=== PATIENT | female | born 1990 | race Caucasian/White ===

== ENCOUNTER 2022-10-08 20:23 | Inpatient (IN) ==
[2022-10-08] MEDS ORDERED: miSOPROStoL 200 MCG TABLET RECTAL PRN (20:38)
[2022-10-08] MEDS ORDERED: DINOPROSTONE 10 MG VAG.INSERT VAG ONE (20:38)
[2022-10-08] MEDS ORDERED: METHYLERGONOVINE 0.2 MG/1 ML AMP IM PRN (20:38)
[2022-10-08] MEDS ORDERED: OXYTOCIN/LR 20 UNIT/1,000 ML BAG IV ONE (20:38)
[2022-10-08] MEDS ORDERED: ONDANSETRON 4 MG/2 ML VIAL IV PRN (20:38)
[2022-10-08] MEDS ORDERED: TRANEXAMIC ACID 1,000 MG in SODIUM CHLORIDE 0.9% 100 ML IV PRN (20:38)
[2022-10-08] MEDS ORDERED: CARBOPROST TROMETHAMINE 250 MCG/ML AMP IM PRN (20:38)
[2022-10-08 21:17] LABS: Bacteria,Urine Occasional /HPF (Few); RBC,Urine <1 /HPF (0-4); Squamous Epithelial Cell,Urine Occasional /HPF (0-10)
[2022-10-08 21:19] LABS: Bilirubin,Urine Negative (Negative); Blood, Urine Negative (Negative); Glucose,Urine (UA) Negative (Negative); Ketones,Urine Negative (Negative); Nitrite,Urine Negative (Negative); Protein,Urine Negative (Negative); Urine Appearance Clear (Clear); Urine Color Yellow (Yellow); Urine Specific Gravity < 1.005 (1.001-1.035); Urine Urobilinogen 0.2 eU/dL (<2.0)
[2022-10-08 21:29] LABS: Basophils % 0.3 % (0.0-0.8); Eosinophils # 0.1 10*3/uL (0.0-0.87); Eosinophils % 0.5 % (0.00-10.9); Hemoglobin 13.4 GM/DL (12.0-16.0); Immature Granulocytes % 0.4 %; Immature Granulocytes Absolute 0.04 #; Lymphocytes # 1.3 10*3/uL (1.4-4.0); Lymphocytes % 13.9 % (21.3-54.2); Mean Corpuscular HGB Conc 34.4 GM/DL (32-36); Mean Corpuscular Volume 94.2 FL (87-102); Monocytes # 0.7 10*3/uL (0.11-0.8); Monocytes % 7.8 % (1.7-12.7); Neutrophils % 77.1 % (38.7-73.9); Platelet Count 205 T/CUMM (130-400); Red Blood Count 4.14 MC/CUMM (3.8-5.5); Red Cell Distribution Width 12.6 % (9.3-17.3); White Blood Count 9.5 T/CUMM (4-12)
[2022-10-08 21:48] LABS: Alanine Aminotransferase 43 U/L (13-56); Albumin 2.8 G/DL (3.4-5.0); Alkaline Phosphatase 160 U/L (45-117); Aspartate Amino Transferase 26 U/L (0-37); Bilirubin,Total < 0.39 MG/DL (0.20-1.00); Blood Urea Nitrogen 8 MG/DL (7-18); Calcium 9.2 MG/DL (8.5-10.1); Carbon Dioxide 19 MMOL/L (21-32); Chloride 105 MMOL/L (98-107); Glucose 90 MG/DL (74-106); Osmolality,Calculated 265.2 MOS/KG (273-304); Potassium 3.3 MMOL/L (3.5-5.1); Sodium 134 MMOL/L (136-145); Total Protein 6.8 G/DL (6.4-8.2)
[2022-10-08] MEDS: LACTATED RINGERS 500 ML IV PRN ×2 (22:55→23:56)
[2022-10-08] MEDS: LACTATED RINGERS 1,000 ML IV SCH (23:51)
[2022-10-09] MEDS: LACTATED RINGERS 1,000 ML IV SCH ×2 (00:27→09:04)
[2022-10-09] MEDS ORDERED: DINOPROSTONE 10 MG VAG.INSERT VAG ONE (15:00)
[2022-10-09] MEDS ORDERED: ZALEPLON 5 MG CAPSULE PO PRN (21:00)
[2022-10-10] MEDS: LACTATED RINGERS 1,000 ML IV SCH ×3 (01:38→16:05)
[2022-10-10] MEDS ORDERED: FAMOTIDINE 20 MG/2 ML VIAL IV ONE (08:00)
[2022-10-10] MEDS ORDERED: ePHEDrine 50 MG/ML VIAL IV PRN (08:00)
[2022-10-10] MEDS ORDERED: PROMETHAZINE 25 MG/1 ML VIAL IM ONE (08:00)
[2022-10-10] MEDS ORDERED: CITRIC ACID/SODIUM CITRATE 30 ML UDCUP PO ONE (08:00)
[2022-10-10] MEDS ORDERED: LACTATED RINGERS 500 ML IV ONE (08:00)
[2022-10-10] MEDS ORDERED: hydrOXYzine HCL 25 MG/1 ML VIAL IM PRN (08:00)
[2022-10-10] MEDS ORDERED: LACTATED RINGERS 1,000 ML IV ONE (08:00)
[2022-10-10] MEDS ORDERED: NALOXONE 0.4 MG/ML VIAL IV PRN (08:00)
[2022-10-10] MEDS: fentaNYL 2 MCG/ROPIV 0.2% EPID 100 ML EPIDURAL SCH (10:32)
[2022-10-10] MEDS: OXYTOCIN/LR 20 UNIT/1,000 ML BAG IV SCH (11:32)
[2022-10-10 14:48] LABS: Glucose,Urine (UA) Negative (Negative); Ketones,Urine 80 mg/dL (Negative); Protein,Urine 30 mg/dL (Negative); Urine Appearance Clear (Clear); Urine Color Red (Yellow); Urine Specific Gravity 1.015 (1.001-1.035)
[2022-10-10 14:49] LABS: Bilirubin,Urine Negative (Negative); Blood, Urine Large mg/dL (Negative); Nitrite,Urine Negative (Negative); Urine Urobilinogen 0.2 eU/dL (<2.0)
[2022-10-10 14:53] LABS: Mucus,Urine Occasional /LPF (Occasional); RBC,Urine 825 /HPF (0-4); Squamous Epithelial Cell,Urine Occasional /HPF (0-10)
[2022-10-10] MEDS ORDERED: TRANEXAMIC ACID 1,000 MG/10 ML VIAL ONE (16:03)
[2022-10-10] MEDS ORDERED: SODIUM CHLORIDE 0.9% 0 ML IV ONE (16:03)
[2022-10-10] MEDS ORDERED: miSOPROStoL 200 MCG TABLET ONE (16:03)
[2022-10-10] MEDS ORDERED: ceFAZolin 2,000 MG/50 ML DUPLEX IV ONE (16:04)
[2022-10-10] MEDS ORDERED: METHYLERGONOVINE 0.2 MG/1 ML AMP ONE (16:04)
[2022-10-10] MEDS ORDERED: CARBOPROST TROMETHAMINE 250 MCG/ML AMP IM ONE (16:04)
[2022-10-10] MEDS ORDERED: LIDOCAINE 2% 5 ML VIAL ONE ×2 (16:07→17:17)
[2022-10-10] MEDS ORDERED: EPINEPHrine 1 MG/ML VIAL ONE (16:07)
[2022-10-10] MEDS ORDERED: SODIUM BICARBONATE 10 MEQ/10 ML SYRINGE IV ONE (16:07)
[2022-10-10] MEDS ORDERED: ONDANSETRON 4 MG/2 ML VIAL ONE (16:15)
[2022-10-10] MEDS ORDERED: ACETAMINOPHEN INJ 1,000 MG/100 ML VIAL IV ONE (16:15)
[2022-10-10] MEDS ORDERED: KETOROLAC 30 MG/1 ML VIAL ONE (16:15)
[2022-10-10] MEDS ORDERED: DEXAMETHASONE 4 MG/1 ML VIAL ONE ×2 (16:15→16:16)
[2022-10-10] MEDS ORDERED: buprenorphine HCL 0.3 MG/ML VIAL ONE (16:16)
[2022-10-10 17:19] LABS: Cord Venous Blood HCO3 22.1 MMOL/L; Cord Venous Blood PO2 23.1
[2022-10-10] MEDS ORDERED: ONDANSETRON 4 MG/2 ML VIAL IV PRN (17:46)
[2022-10-10] MEDS ORDERED: RHO(D) IMMUNE GLOBULIN 300 MCG SYRINGE IM ONE (17:46)
[2022-10-10] MEDS ORDERED: SIMETHICONE CHEW 80 MG TABLET PO PRN (17:46)
[2022-10-10] MEDS ORDERED: OXYTOCIN/LR 20 UNIT/1,000 ML BAG IV ONE (17:46)
[2022-10-10] MEDS ORDERED: ACETAMINOPHEN 325 MG TABLET PO PRN (17:46)
[2022-10-10] MEDS: ACETAMINOPHEN 500 MG TABLET PO SCH (22:58)
[2022-10-10] MEDS: DOCUSATE SODIUM 100 MG CAPSULE PO SCH (22:58)
[2022-10-10] MEDS: KETOROLAC 30 MG/1 ML VIAL IV SCH (22:59)
[2022-10-11] MEDS: LACTATED RINGERS 1,000 ML IV SCH (01:27)
[2022-10-11] MEDS: KETOROLAC 30 MG/1 ML VIAL IV SCH ×2 (05:46→14:43)
[2022-10-11] MEDS: ACETAMINOPHEN 500 MG TABLET PO SCH ×2 (05:46→14:45)
[2022-10-11 07:46] LABS: Basophils % 0.2 % (0.0-0.8); Eosinophils % 0.1 % (0.00-10.9); Hematocrit 34.6 VOL% (35.7-47.0); Hemoglobin 11.5 GM/DL (12.0-16.0); Immature Granulocytes % 0.6 %; Lymphocytes # 1.3 10*3/uL (1.4-4.0); Lymphocytes % 8.6 % (21.3-54.2); Mean Corpuscular HGB Conc 33.2 GM/DL (32-36); Mean Corpuscular Volume 95.6 FL (87-102); Mean Platelet Volume 11.4 FL (9.6-12.0); Monocytes # 1.1 10*3/uL (0.11-0.8); Monocytes % 7.4 % (1.7-12.7); Neutrophils % 83.1 % (38.7-73.9); Platelet Count 187 T/CUMM (130-400); Red Blood Count 3.62 MC/CUMM (3.8-5.5); Red Cell Distribution Width 12.8 % (9.3-17.3); White Blood Count 15.5 T/CUMM (4-12)
[2022-10-11] MEDS: MAGNESIUM HYDROXIDE SUSP 30 ML UDCUP PO PRN ×2 (08:00→20:30)
[2022-10-11] MEDS: MULTIVITAMIN (PRENATAL) TABLET PO SCH (08:00)
[2022-10-11] MEDS: DOCUSATE SODIUM 100 MG CAPSULE PO SCH ×2 (08:00→20:30)
[2022-10-11] MEDS: IBUPROFEN 800 MG TABLET PO PRN ×2 (15:24→22:58)
[2022-10-12] MEDS: LACTATED RINGERS 1,000 ML IV SCH ×7 (00:02→00:05)
[2022-10-12] MEDS: OXYTOCIN/LR 20 UNIT/1,000 ML BAG IV SCH (00:04)
[2022-10-12] MEDS: fentaNYL 2 MCG/ROPIV 0.2% EPID 100 ML EPIDURAL SCH ×2 (00:04→00:05)
[2022-10-12 07:59] VITALS: BP 117/69
[2022-10-12] MEDS: MAGNESIUM HYDROXIDE SUSP 30 ML UDCUP PO PRN (09:34)
[2022-10-12] MEDS: DOCUSATE SODIUM 100 MG CAPSULE PO SCH (09:35)
[2022-10-12] MEDS: MULTIVITAMIN (PRENATAL) TABLET PO SCH (09:35)
== END 2022-10-12 12:30 | disposition home or self-care (01) | DRG 787 ==
LOC: N.LDOUT 20:23 → N.LD 20:28 → N.OB 10-10 23:55
PROVIDERS: ADMIT Obstetrics & Gynecology; ATTEND Obstetrics & Gynecology
PROC: LDCSECT (ICD-10-PCS; 2022-10-10 16:00)